=== PATIENT | male | born 1990 | race Caucasian/White ===

== ENCOUNTER 2017-04-08 04:07 | Emergency (ER) | payer OTHER ==
[~2017-04-08] VITALS: Ht 170.2 cm; Wt 61.2 kg
[~2017-04-08 04:07] MED LIST: VICODIN 5-3001 EACH PO
[2017-04-08] MEDS ORDERED: LISINOPRIL10 MG PO (04:13)
[2017-06-02] MEDS ORDERED: KEPPRA500 MG PO (08:51)
== END 2017-04-08 06:14 | disposition home or self-care (01) ==
LOC: ED 04:07
DX: S06.0X1A Concussion with loss of consciousness of 30 minutes or less, initial encounter (principal); R56.1 Post traumatic seizures; F17.200 Nicotine dependence, unspecified, uncomplicated; W06.XXXA Fall from bed, initial encounter; Z79.899 Other long term (current) drug therapy
CPT/HCPCS: 70450; 80053; 85025; 99284; J7030

== ENCOUNTER 2017-08-28 00:39 | Emergency (ER) | payer OTHER ==
[~2017-08-28] VITALS: Ht 170.2 cm; Wt 61.2 kg
--- OUTSIDE RECORDS SUMMARY | ~2017-08-28 | XMS | Encounter Summary ---
Demographics + + + | Address | [address] | | | [place] [address] | + + + | Home Phone | | + + + | Preferred Language | Unknown | + + + | Marital Status | Single | + + + | Rastafarian Affiliation | Unknown | + + + | Race | Unknown | + + + | Ethnic Group | Unknown | + + + Author + + + | Author | [facility] | | | and Michaelana | + + + | Organization | [facility] | | | and Michaelana | + + + | Address | Unknown | + + + | Phone | Unavailable | + + + Support + + + + + | Name | Relationship | Address | Phone | + + + + + | Nina Camejo | ECON | [address] | | | | | [place], [place] | | | | | [address] | | + + + + + Care Team Providers + +------+ + | Care Gettering Filament Machine Operator Name | Role | Phone | + +------+ + | Fernando Wilson MD | PCP | | + +------+ + Encounter Details +--------+ + + + + | Date | Type | Department | Care Team | Description | +--------+ + + + + | 08/26/ | Abstract | [facility] [place] | Henrique Yan, | | | 2017 | | NEUROLOGY [place] | MD [address] [facility] | | | | | [address] | [place] | | | | | [place] | [address] | | | | | [address] | | | | | | [phone] | | | +--------+ + + + + Social History + + + +--------+ + | Tobacco Use | Types | Packs/Day | Years | Date | | | | | Used | | + + + +--------+ + | Current Every Day | Cigarettes | 0.5 | 9 | Started: 08/26/2008 | | Smoker | | | | | + + + +--------+ + + +---+---+--------+ | Smokeless Tobacco: | | | Quit: | | Former User | | | 2010 | + +---+---+--------+ + + +---------+ + | Alcohol Use | Drinks/We | oz/Week | Comments | | | ek | | | + + +---------+ + | Yes | 6 Cans | 3.6 | Social | | | of beer | | | + + +---------+ + + + + | Sex Assigned at | Date Recorded | | | | + + + | Not on file | | + + + as of this encounter Plan of Treatment Not on fileas of this encounter Visit Diagnoses Not on filein this encounter"
--- OUTSIDE RECORDS SUMMARY | ~2017-08-28 | XMS | Encounter Summary ---
Demographics + + + | Address | [address] | | | [place] [address] | + + + | Home Phone | | + + + | Preferred Language | Unknown | + + + | Marital Status | Single | + + + | Zoroastrian Affiliation | Unknown | + + + | Race | Unknown | + + + | Ethnic Group | Unknown | + + + Author + + + | Author | [facility] | | | and Michaelana | + + + | Organization | [facility] | | | and Michaelana | + + + | Address | Unknown | + + + | Phone | Unavailable | + + + Support + + + + + | Name | Relationship | Address | Phone | + + + + + | Nina Camejo | ECON | [address] | | | | | [place], [place] | | | | | [address] | | + + + + + Care Team Providers + +------+ + | Care Keymodule Assembly Machine Tender Name | Role | Phone | + +------+ + | Fernando Wilson MD | PCP | | + +------+ + Reason for Referral Diagnostic/Screening (Routine) + +--------+ + + + + | Status | Reason | Specialty | Diagnoses / | Referred By | Referred To | | | | | Procedures | Contact | Contact | + +--------+ + + + + | Pending | | Radiology | Diagnoses | Yuriy, | | | Review | | | Seizures | Henrique S, | | | | | | ([facility]LY [facility]) | 19 | | | | | | Procedures | [facility] | | | | | | MRI Brain w | [place], | | | | | | wo Brainna | [place] [address] | | | | | | | Phone: | | | | | | | [phone] | | | | | | | Fax: | | | | | | | [phone] | | + +--------+ + + + + Reason for Visit + + + | Reason | Comments | + + + | Imaging Only | | + + + Encounter Details +--------+ + + + + | Date | Type | Department | Care Team | Description | +--------+ + + + + | 08/26/ | Telephone | [facility] | Henrique Yan, | Imaging Only | | 2018 | | [facility] [place] | [address] | | | | | [address] | [place] | | | | | [place] | [address] | | | | | [address] | | | | | | [phone] | | | +--------+ + + + [...] | | Former User | | | 2009 | + +---+---+--------+ + + +---------+ + [...] as of this encounter Plan of Treatment + +--------+ + + | Name | Priori | Associated Diagnoses | Order Schedule | | | ty | | | + +--------+ + + | MRI Brain w wo Contrast | Routin | Seizures (HCC) | Expected: | | | e | | 08/26/2017, Expires: | | | | | 08/26/2018 | + +--------+ + + as of this encounter Visit Diagnoses + + | Diagnosis | + + | Seizures (HCC) - Primary | + + | Other convulsions | + +"
--- OUTSIDE RECORDS SUMMARY | ~2017-08-28 | XMS | Clinical Summary ---
Demographics + + + | Address | [address] | | | [place] [address] | + + + | Home Phone | | + + + | Preferred Language | Unknown | + + + | Marital Status | Single | + + + | Yarsani Affiliation | Unknown | + + + | Race | Unknown | + + + | Ethnic Group | Unknown | + + + Author + + + | Author | [facility] | | | and Michaelana | + + + | Organization | [facility] | | | and Michaelana | + + + | Address | Unknown | + + + | Phone | Unavailable | + + + Support + + + + + | Name | Relationship | Address | Phone | + + + + + | Nina Camejo | ECON | [address] | | | | | [place] | | | | | [address] | | + + + + + Care Team Providers + +------+ + | Care Black Ash Worker Name | Role | Phone | + +------+ + | Fernando Wilson MD | PP | | + +------+ + Allergies No Known Allergies Current Medications + + +--------+---------+------+------+-------+ | Prescription | Sig. | Disp. | Refills | Star | End | Statu | | | | | | t | Date | s | | | | | | Date | | | + + +--------+---------+------+------+-------+ | lisinopril | Take 1 tablet by | | | 03/2 | | Activ | | (PRINIVIL, ZESTRIL) | mouth Daily. | | | 8/20 | | e | | 10 mg tablet | | | | 18 | | | + + +--------+---------+------+------+-------+ | ibuprofen (ADVIL, | Take 200 mg by mouth | | | | | Activ | | MOTRIN) 200 mg | every 6 hours as | | | | | e | | tablet | needed for Pain. | | | | | | + + +--------+---------+------+------+-------+ | Cholecalciferol | Take 50,000 Units by | | | | | Activ | | (VITAMIN D-3) 24950 | mouth Once a week. | | | | | e | | units CAPS | | | | | | | + + +--------+---------+------+------+-------+ | lamoTRIgine | Start 1 tab daily. | 147 | 0 | 04/0 | | Activ | | (LAMICTAL) 25 mg | Every week increase | tablet | | 620 | | e | | tabletIndications: | by 1 tab, | | | 18 | | | | Complex partial | alternating between | | | | | | | epilepsy with | morning and evening | | | | | | | generalization and | up to 3 tabs twice a | | | | | | | with intractable | day. Then switch to | | | | | | | epilepsy (HCC) | 100 mg tabs. | | | | | | + + +--------+---------+------+------+-------+ | lamoTRIgine | Take 1 tablet by | 60 | 2 | 04/0 | | Activ | | (LAMICTAL) 100 mg | mouth 2 times daily. | tablet | | 11/09 | | e | | tabletIndications: | Start after | | | 18 | | | | Complex partial | finishing 25mg tabs. | | | | | | | epilepsy with | | | | | | | | generalization and | | | | | | | | with intractable | | | | | | | | epilepsy (HCC) | | | | | | | + + +--------+---------+------+------+-------+ | levETIRAcetam | Take 500 mg by mouth | | | 03/0 | 04/0 | Disco | | (KEPPRA) 500 mg | 2 times daily. | | | 01/09 | 11/09 | ntinu | | tablet | 0700, 1900 | | | 18 | 18 | ed | + + +--------+---------+------+------+-------+ Active Problems Not on file Encounters +--------+ + + + + | Date | Type | Specialty | Care Team | Description | +--------+ + + + + | 08/26/ | Office | | Henrique Yan, | Complex partial | | 2017 | Visit | | MD | epilepsy with | | | | | | generalization and | | | | | | with intractable | | | | | | epilepsy (HCC) | | | | | | (Primary Dx); | | | | | | Anxiety and | | | | | | depression; | | | | | | Pathological | | | | | | fracture of vertebra | | | | | | due to other | | | | | | osteoporosis, | | | | | | sequela; | | | | | | Osteomalacia | +--------+ + + + + | 08/26/ | Telephone | | Henrique Yan, | | | 2017 | | | MD | | +--------+ + + + + | 08/26/ | Telephone | | Henrique Yan, | Imaging Only | | 2017 | | | MD | | +--------+ + + + + | 08/26/ | Abstract | | Henrique Yan, | | | 2017 | | | | | +--------+ + + + + | 06/24/ | Ancillary | | Provider, | | | 2017 | Orders | | MD Baldo | | +--------+ + + + + | 06/10/ | Ancillary | | April, | | | 2017 | Orders | | MD Baldo | | +--------+ + + + + | 06/02/ | Imaging | | Provider, | | | 2017 | Exam | | MD Baldo | | +--------+ + + + + from Last 3 Months Family History + + +------+ + | Medical History | Relation | Name | Comments | + + +------+ + | No Known Problems | Brother | | | + + +------+ + | No Known Problems | Father | | | + + +------+ + | No Known Problems | Maternal | | | | | Grandfath | | | | | er | | | + + +------+ + | No Known Problems | Maternal | | | | | Grandmoth | | | | | er | | | + + +------+ + | No Known Problems | Mother | | | + + +------+ + | Asthma | Other | | | + + +------+ + | No Known Problems | Paternal | | | | | Grandfath | | | | | er | | | + + +------+ + | No Known Problems | Paternal | | | | | Grandmoth | | | | | er | | | + + +------+ + | No Known Problems | Sister | | | + + +------+ + + +------+--------+ + | Relation | Name | Status | Comments | + +------+--------+ + | Brother | | Alive | | + +------+--------+ + | Father | | | | + +------+--------+ + | Maternal Grandfather | | | | + +------+--------+ + | Maternal Grandmother | | | | + +------+--------+ + | Mother | | Alive | | + +------+--------+ + | Other | | | | + +------+--------+ + | Paternal Grandfather | | | | + +------+--------+ + | Paternal Grandmother | | | | + +------+--------+ + | Sister | | Alive | | + +------+--------+ + Social History + + + +--------+ [...] on file | | + + + Last Filed Vital Signs + + + + | Vital Sign | Reading | Time Taken | + + + + | Blood Pressure | 128/80 | 08/26/20171120 PDT | + + + + | Pulse | 78 | 08/26/20171120 PDT | + + + + | Temperature | 37.2 C (98.9 F) | 08/26/20171120 PDT | + + + + | Respiratory Rate | - | - | + + + + | Oxygen Saturation | 97% | 08/26/20171120 PDT | + + + + | Inhaled Oxygen | - | - | | Concentration | | | + + + + | Weight | 65.5 kg (144 lb 6.4 | 08/26/20171120 PDT | | | oz) | | + + + + | Height | 167.6 cm (5' 6") | 08/26/20171120 PDT | + + + + | Body Mass Index | 23.31 | 08/26/20171120 PDT | + + + + Plan of Treatment + + + + + | Health Maintenance | Due Date | Last Done | Comments | + + + + + | Vaccine: | | | | | Dtap/Tdap/Td (1 - | 0 | | | | Tdap) | | | | + + + + + | Vaccine: | | | | | Pneumococcal 19-64 | 0 | | | | (PPSV23 only) Medium | | | | | Risk (1 of 1 - | | | | | PPSV23) | | | | + + + + + | Vaccine: Influenza | | | | | (Season Ended) | 8 | | | + + + + + Results CT Head wo Contrast (06/02/2017 0735) + + + | Specimen | Performing Laboratory | + + + | | [facility] | + + + + + | Narrative | + + | External films for comparison only - no result from [place]. | + + from Last 3 Months Insurance + +--------+ +--------+ +---------+ | Payer | Benefi | Subscriber | Type | Phone | Address | | | t Plan | ID | | | | | | / | | | | | | | Group | | | | | + +--------+ +--------+ +---------+ | [employer] | [employer] | [phone] | Medica | [phone] | | MEDICAID HMO | HEALTH | | id | 9821 | | | | [place] | | | | | | [place] | | | | | + +--------+ +--------+ +---------+ + +--------+ +--------+ + + | Guarantor Name | Accoun | Relation to | Date | Phone | Billing Address | | | t Type | Patient | of | | | | | | | | | | + +--------+ +--------+ + + | MACARIO PAPPAS | Person | Self [birth year] | Home: | [address] | | | al/Fam | | 1990 | [phone] [place] [address] | | | serafin | | | [birth year] | | + +--------+ +--------+ + +
--- OUTSIDE RECORDS SUMMARY | ~2017-08-28 | XMS | Encounter Summary ---
Demographics + + + | Address | [address] | | | [place] [address] | + + + | Home Phone | | + + + | Preferred Language | Unknown | + + + | Marital Status | Single | + + + | Confucianism Affiliation | Unknown | + + + | Race | Unknown | + + + | Ethnic Group | Unknown | + + + Author + + + | Author | [facility] | | | and Michaelana | + + + | Organization | [facility] | | | and Michaelana | + + + | Address | Unknown | + + + | Phone | Unavailable | + + + Support + + + + + | Name | Relationship | Address | Phone | + + + + + | Nina Camejo | ECON | [address] | | | | | [place] | | | | | [address] | | + + + + + Care Team Providers + +------+ + | Care Operations Management Professionals Name | Role | Phone | + +------+ + | Fernando Wilson MD PCP | | + +------+ + Reason for Visit + + + | Reason | Comments | + + + | Consultation | Evaluation of seizures. Has had March and May. | + + + Evaluate & Treat (Routine) +--------+--------+ + + + + | Status | Reason | Specialty | Diagnoses / | Referred By | Referred To | | | | | Procedures | Contact | Contact | +--------+--------+ + + + + | Closed | | Neurology | Diagnoses | Steve, | Yuriy, | | | | | Epilepsy, | Fernando Agustin, | Henrique Zuleta MD | | | | | unspecified, | [address] | [address] | | | | | not | [address] | [facility] | | | | | intractable, | [place], | [place], | | | | | without | [place] [address] | [place] [address] | | | | | status | Phone: | Phone: | | | | | epilepticus | [phone] | [phone] | | | | | ([facility]) | Fax: | Fax: | | | | | Procedures | [phone] | [phone] | | | | | MO OFFICE | | | | | | | OUTPATIENT | | | | | | | NEW 60 | | | | | | | MINUTES | | | +--------+--------+ + + + + Encounter Details +--------+---------+ + + + | Date | Type | Department | Care Team | Description | +--------+---------+ + + + | 08/26/ | Office | [facility] | Henrique Yan, | Complex partial | | 2017 | Visit | NEUROLOGY [place] | [address] [facility] | epilepsy with | | | | [address] | [place] | generalization and | | | | [place] | [address] | with intractable | | | | [address] | | epilepsy (HCC) | | | | [phone] | | (Primary Dx); | | | [...] | | | | | Osteomalacia | +--------+---------+ + + + Social History + + [...] + + + as of this encounter Last Filed Vital Signs + + + [...] | Body Mass Index | 23.31 | 08/26/2017 1121 PDT | + + + + in this encounter Instructions Patient Instructions - Henrique Yan MD - 08/26/2017 1100 PDTFormatting of this note michele galan be different from the original. Reduce Levetiracetam by 1/2 tab per week alternating between morning and evening until you are off. Increase Lamotrigine as instructed on the prescription up to 100mg 2 times a day. Get blood drawn for the Lamotrigine level 2 weeks after starting 100mg 2 times a day and se nd to Dr. Yan's office. Partial Seizures: Know What to Do Because seizures may happen at any time, it helps to be prepared. This is true even ifmed icine usually keeps your seizures under control. Start by telling those you live and work wi th about your health condition. Make sure they know what to do if a seizure happens. Steps for your protection Most partial seizures last from a few seconds to a few minutes. During that time, those kira und you should help keep you safe. What those witnessing the seizure should do is listed bel ow. What to do Seek medical attention right awayif you: Are hurt during the seizure. Begin choking. Have a seizure that lasts more than 5 minutes. Have multiple seizures in a row. Do not fully regain consciousness after the seizure is over. Otherwise, they should do the following: Move any hard or sharp objects away from you. Turn you on your side if you seem unconscious. Talk to you afterward to relieve your confusion. Note how long the seizure lasted. Note what you were doing before, during, and after the seizure. What NOT to do It is important thatthey do not do the following: Do not try to stop any jerking or twisting. Do not put anything in the mouth. Prepare family, friends, and coworkers It may seem awkward to talk to others about seizures. But telling family, friends, and cowo rkers about your seizures can help them react to a seizure in a way that will help and not hurt you. Describe to them what happens before, during, and after you have a seizure. Exp melody what they should and should not do. Date Last Reviewed: 02/26/201519990774-[address] [employer] [place] [address], [place] [address]. All righ ts reserved. This information is not intended as a substitute for professional medical care. Always follow your healthcare professional's instructions. Epilepsy: How Seizures Affect the Body The brain is the control center ofyour body. It manages everything from movement an d balance to emotions and memory. When a seizure happens, some or all brain functions are te mporarily affected. Normal EEG Partial seizure EEG Generalized seizure EEG The brain working normally The brain uses electrical signals to send messages throughout your body.Signals sent from different parts ofyour brain control different body functions. For instance, 1 part ofy our brain controls balance. Another part controls speech. A healthcare provider can record b rain signals using a test called an electroencephalogram (EEG). The brain during a seizure During a seizure, excessive electrical signals inyour brain disrupt its normal activity. The waythis affects body functions depends on2 main factors. First is the location of t he seizure in your brain. For instance, a seizure in a part ofyour brain that controls mov ement might causeyour arm or leg to jerk. The second factor is the type of seizure. For in stance, a seizurethat affects more ofyour brain may affect more ofyour body. Types of seizures The 2 main types of seizures are partial and generalized. A partial seizure can become gene ralized. Partial seizures (do not involve the whole brain) Also called focal seizures, these seizures start in 1 part ofyour brain.There are 2 typ es: Simple partial seizures.These may start with an aura, or warning. Auras are an unusual sense or feeling that indicates that a seizure will soon happen. Auras can involve strange tastes or smells, stomach upset, or a feeling of fear or dj vu. Simple partial seizures may also involve jerking movements or hallucinations. You are awake and aware that you are h aving a simple seizure. Complex partial seizures.These may also start with an aura. You may become motionless and have a vacant stare. Or you may perform automatisms. These are repeated movements, such as smacking lips or gesturing.A complex seizure means there is a change or loss of c onsciousness. If you have a complex seizure, youmay be awake but unaware of the seizure. Generalized seizures (involves the whole brain) These seizures affect your entire brain at once. They usually start happening at a young ag e. The most common types of generalized seizures are: Absence seizures(petit mal seizures). These seizures involve a brief lapse of awarenes s. Signs can include staring, eye blinking, and lip smacking. Tonic-clonic seizures(grand mal seizures). These may be the best known type of seizure . You lose consciousness and may fall to the ground.Your body stiffens and then convulses, withyour arms and legs jerking rhythmically. Myoclonic seizures.These seizures involve brief jerking movements. They usually affect both sides of your body. Atonic seizures(drop attacks). During these seizures, you lose all muscle control and may fall or slump over. Date Last Reviewed: 01/28/201519999682-09[address] [employer] [place] [address]. All [facility] ts reserved. This information is not intended as a substitute for professional medical care. Always follow your healthcare professional's instructions. Self-Care for Epilepsy You can do many things to help control your seizures. First, follow your treatment plan. If yourhealthcare providerhas prescribed medicines, be sure to take them as directed. Also , take the following steps. Track and avoid triggers Triggersare things that seem to provoke seizures. Keep track of your triggers and try to avoid them. Here are 2 common triggers and ways to cope with them: Too little sleep.Be sure to get enough sleep. If you have trouble sleeping, talk to yo healthcare provider. Alcohol and drugs.Avoid alcohol. Never take any illegal drugs. If you do have substanc e abuse issues, seek the help of your healthcare provider for the safest way to become free of alcohol and drugs. Keep a healthy lifestyle A healthy lifestyle can help you feel goodand cope better with epilepsy. Exercise often. Frequent exercise can help keep you healthy. Try to exercise fix01kg nutes most days of the week. Yoga is a good choice. Eat well and regularly. Good nutrition can give you energy and make you feel better. Eat lotsof fruits, vegetables, and whole grains. Avoid skipping meals, because seizures are m ore likely if you have low blood sugar. Control stress. Keeping stress levels low can help you cope better with epilepsy. To man age stress, try an exercise program. Manage illness. Get proper treatment when you re sick. [facility] about the risk of seizures with medicines you take for illnesses. If y our healthcare provider has prescribed antiepileptic medicines, be sure to take them even wh en you re ill. Date Last Reviewed: 01/28/201519998142-[address] [employer] [place], [place] [address]. All righ ts reserved. This information is not intended as a substitute for professional medical care. Always follow your healthcare professional's instructions. 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
--- OUTSIDE RECORDS SUMMARY | ~2017-08-28 | XMS | Encounter Summary ---
Demographics + + + | Address | [address] | | | [place] [address] | + + + | Home Phone | | + + + | Preferred Language | Unknown | + + + | Marital Status | Single | + + + | Advent Affiliation | Unknown | + + + | Race | Unknown | + + + | Ethnic Group | Unknown | + + + Author + + + | Author | [facility] | | | and Michaelana | + + + | Organization | [facility] | | | and Michaelana [...] [place], [place] | | | | | [address] | | + + + + + Care Team Providers + +------+ + | Care Digital Photo Printer Name | Role | Phone | + +------+ + | Fernando Wilson MD | PCP | | + +------+ + Encounter Details +--------+ + + + + | Date | Type | Department | Care Team | Description | +--------+ + + + + | 08/26/ | Telephone | [place] | Henrique Yan, | | | 2017 | | NEUROLOGY [place] | [address] [facility] | | | | | [address] [facility] [address] | [place] | | | | | [place] | [address] | | | | | [address] | | | | | | [phone] | | | +--------+ + + + [...]
--- OUTSIDE RECORDS SUMMARY | ~2017-08-28 | XMS | Encounter Summary ---
Demographics + + + | Address | [address] | | | [place] [address] | + + + | Home Phone | | + + + | Preferred Language | Unknown | + + + | Marital Status | Single | + + + | Scientology Affiliation | Unknown | + + + | Race | Unknown | + + + | Ethnic Group | Unknown | + + + Author + + + | Author | [facility] | | | and Michaelana | + + + | Organization | [facility] | | | and Michaelana | + + + | Address | Unknown | + + + | Phone | Unavailable | + + + Support + + + + + | Name | Relationship | Address | Phone | + + + + + | Nina Camejo | ECON | [address] | | | | | [place], [place] | | | | | [address] | | + + + + + Care Team Providers + +------+ + | Care Operational Meteorologist Name | Role | Phone | + +------+ + PCP | Unavailable | + +------+ + Reason for Referral Diagnostic/Screening (Routine) + +--------+ + + + + | Status | Reason | Specialty | Diagnoses / | Referred By | Referred To | | | | | Procedures | Contact | Contact | + +--------+ + + + + | Pending | | Radiology | Procedures | Provider, | | | Review | | | CT Head wo | Historical, | | | | | | Contrast | [address] | | | | | | | Elis [address]. [place] | | | | | | | [place] | | | | | | | [address] | | + +--------+ + + + + Encounter Details +--------+ + + + + | Date | Type | Department | Care Team | Description | +--------+ + + + + | 06/02/ | Imaging | [facility] | Provider, | | | 2018 | Exam | MED CTR EXTERNAL | [address] | | | | | IMAGING | [place] | | | | | [phone] | [place] [address] | | +--------+ + + + + Social History + +-------+ +--------+------+ | Tobacco Use | Types | Packs/Day | Years | Date | | | | | Used | | + +-------+ +--------+------+ | Never Assessed | | | | | + +-------+ +--------+------+ + + + | Sex Assigned at | Date Recorded | | | | + + + | Not on file | | + + + as of this encounter Plan of Treatment Not on fileas of this encounter Results CT Head wo Contrast (06/02/2017 0735) + + + | Specimen | Performing Laboratory | + + + | | [facility] | + + + + + | Narrative | + + | External films for comparison only - no result from [facility]. | + + in this encounter Visit Diagnoses Not on filein this encounter"
--- OUTSIDE RECORDS SUMMARY | ~2017-08-28 | XMS | Encounter Summary ---
Demographics + + + | Address | [address] | | | [place] [address] | + + + | Home Phone | | + + + | Preferred Language | Unknown | + + + | Marital Status | Single | + + + | Temple Affiliation | Unknown | + + + | Race | Unknown | + + + | Ethnic Group | Unknown | + + + Author + + + | Author | [facility] | | | and Michaelana | + + + | Organization | [facility] | | | and Michaelana | + + + | Address | Unknown | + + + | Phone | Unavailable | + + + Support + + + + + | Name | Relationship | Address | Phone | + + + + + | Nina Camejo | ECON | [address] | | | | | [place], [place] | | | | | [address] | | + + + + + Care Team Providers + +------+ + | Care Cloth Burler Name | Role | Phone | + [...] | | | Review | | | MRI Lumbar | Historical, | | | | | | Spine wo | [address] | | | | | | Contrast | [address] | | | | | | | [place] | | | | | | | [address] | | + +--------+ + + + + Diagnostic/Screening (Routine) + +--------+ + + + + | Status | Reason | Specialty | Diagnoses / | Referred By | Referred To | | | | | Procedures | Contact | Contact | + +--------+ + + + + | Pending | | Radiology | Procedures | Provider, | | | Review | | | MRI | Historical, | | | | | | Thoracic | MD [address] | | | | | | Spine w wo | Elis [address]JO | | | | | | Contrast | [place] | | | | | | | [address] | | + +--------+ + + + + Diagnostic/Screening (Routine) + +--------+ + + + + | Status | Reason | Specialty | Diagnoses / | Referred By | Referred To | | | | | Procedures | Contact | Contact | + +--------+ + + + + | Pending | | Radiology | Procedures | Provider, | | | Review | | | MRI | Historical, | | | | | | Cervical | MD [address] | | | | | | Spine wo | Elis Escobedo. [address] A | | | | | | Contrast | [place] | | | | | | | [address] | | + +--------+ + + + + Encounter Details +--------+ + + + + | Date | Type | Department | Care Team | Description | +--------+ + + + + | 06/10/ | Ancillary | [facility] | Provider, | | | 2018 | Orders | MED CTR EXTERNAL | [address] | | | | | IMAGING | [place] | | | | | [phone] | [place] [address] | | +--------+ + + + + [...] Not on fileas of this encounter Results XR Thoracic Spine 2 Vw (04/21/2017 1040) + + + | Specimen | Performing Laboratory | + + + | | [facility] | + + + + + | Narrative | + + | External films for comparison only - no result from [facility]. | + + MRI Thoracic Spine w wo Contrast (06/24/2015 1310) + + + | Specimen | Performing Laboratory | + + + | | [facility] | + + + + + | Narrative | + + | External films for comparison only - no result from [facility]. | + + MRI Lumbar Spine wo Contrast (06/24/2015 0740) + + + | Specimen | Performing Laboratory | + + + | | [facility] | + + + + + | Narrative | + + | External films for comparison only - no result from [facility]. | + + MRI Cervical Spine wo Contrast (06/24/2015714) + + + | Specimen | Performing Laboratory | + + + | | [facility] | + + + + + | Narrative | + + | External films for comparison only - no result from [facility]. | + + in this encounter Visit Diagnoses Not on filein this encounter"
--- OUTSIDE RECORDS SUMMARY | ~2017-08-28 | XMS | Clinical Summary ---
Demographics + + + | Address | [address] | | | [place] [address] | + + + | Home Phone | | + + + | Preferred Language | Unknown | + + + | Marital Status | Single | + + + | Uatsdin Affiliation | Unknown | + + + | Race | White | + + + | Ethnic Group | Not or | + + + Author + + + | Author | [facility] | + + + | Organization | [facility] | + + + | Address | Unknown | + + + | Phone | Unavailable | + + + Support + + + + + | Name | Relationship | Address | Phone | + + + + + | FLORI PEARSON | ECON | [address] | | | | | [place] | | | | | [address] | | + + + + + Care Team Providers + +------+ + | Care Director Of Accounting Name | Role | Phone | + +------+ + | Fernando Wilson MD | PP | | + +------+ + Source Comments MARILEE is fully live on both [facility] Ambulatory and [facility] InPatient.[facility] Allergies Not on File Current Medications Not on file Active Problems Not on file Encounters +--------+ + + + + | Date | Type | Specialty | Care Team | Description | +--------+ + + + + | 07/27/ | Document-Sc | | Unknown | | | 2018 | anned | | | | +--------+ + + + + | 07/14/ | Results/Int | | Bianka Rivas MD | | | 2018 | erpretation | | | | +--------+ + + + + from Last 3 Months Social History + +-------+ +--------+------+ | Tobacco [...] on file | | + + + Plan of Treatment + + + + + | Health Maintenance | Due Date | Last Done | Comments | + + + + + | INFLUENZA VACCINE | | | | | (FLU SHOT) | 8 | | | + + + + + Procedures + +--------+ + + + | Procedure Name | Priori | Date/Time | Associated Diagnosis | Comments | | | ty | | | | + +--------+ + + + | EEG ROUTINE | Routin | 07/14/2017 | | Results for this | | | e | 12:00 AM | | procedure are in the | | | | PST | | results section. | + +--------+ + + + from Last 3 Months Results EEG ROUTINE (07/14/2017) + + | Narrative | + + | Patient Name: Macario Pappas Date of : 1990 Medical Record | | Number: [id number] Date of Test: 07/14/2017 Place of Service: [facility] | | ([address]) [facility] Department: [facility] - [id number] [facility] | | ROUTINE EEG History: 27 year old man with history of 2 seizures being treated with | | Keppra. Medications: Keppra, Lisinopril Interpretation: In the maximally alert | | state, there is a reactive 10-11 Hz posterior dominant rhythm of moderate amplitude, | | with lower amplitude faster frequencies present symmetrically in the anterior head | | regions. The patient entered into the drowsy state, but no segment of stage I or | | stage II of sleep was recorded. Nearly continuous subtle focal slowing in the theta | | frequency range was present in the right frontotemporal region. The assessment is made | | somewhat more difficult by the presence of frequent electrode artifact in the right | | posterior temporal (T6) electrode; however, the frontotemporal slowing has a believable | | field and does not appear clearly artifactual No epileptiform discharges or | | electrographic seizures were present. Hyperventilation was performed for 3 minutes | | with no additional abnormal responses. Photic stimulation produced no photoparoxysmal | | discharges or other abnormal response. EKG showed normal sinus rhythm throughout | | the recording. Impression: This is an abnormal EEG. The presence of focal slowing | | in the right frontotemporal region correlates with a possible physiologic or structural | | abnormality in that region. If not already performed, brain imaging with MRI would be | | indicated. No epileptiform abnormalities or electrographic seizures were recorded on | | this routine EEG. Electronically signed on 07/14/2017 at 11:29 AM BIANKA RIVAS MD. 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
--- OUTSIDE RECORDS SUMMARY | ~2017-08-28 | XMS | Clinical Summary ---
Demographics + + + | Address | [address] | | | [place] [address] | + + + | Home Phone | | + + + | Preferred Language | Unknown | + + + | Marital Status | Unknown | + + + | Anabaptism Affiliation | Unknown | + + + | Race | Unknown | + + + | Ethnic Group | Unknown | + + + Author + + + | Author | [facility] | + + + | Organization | [facility] [employer] [facility] | + + + | Address | Unknown | + + + | Phone | Unavailable | + + + Care Team Providers + +------+ + | Care Technical Developer Name | Role | Phone | + +------+ + PP | Unavailable | + +------+ + Allergies Not on File Current Medications Not on file Active Problems Not on file Social History + +-------+ +--------+------+ | Tobacco [...] | + + + + + Results Not on filefrom Last 3 Months"
--- OUTSIDE RECORDS SUMMARY | ~2017-08-28 | XMS | Encounter Summary ---
Demographics + + + | Address | [address] | | | [place] [address] | + + + | Home Phone | | + + + | Preferred Language | Unknown | + + + | Marital Status | Single | + + + | Baptism Affiliation | Unknown | + + + | Race | Unknown | + + + | Ethnic Group | Unknown | + + + Author + + + | Author | [facility] | | | and Michaelana | + + + | Organization | [facility] | | | and Michaelana | [...] [place], [place] | | | | | [address] | | + + + + + Care Team Providers + +------+ + | Care Agricultural Real Estate Agent Name | Role | Phone | + [...] | | | | | | [place] | | | | | | | [address] | | + +--------+ + + + [...] | | | | | | | [address] | | + +--------+ + + + [...] | | | | | | | [address] | | + +--------+ + + + [...] Elis [address]ARANJO | | | | | [phone] | [place] [address] | | +--------+ + + + + [...] for comparison only - no result from [facility]. | + + MRI Thoracic Spine w wo Contrast (06/24/2015 1310) + + + | Specimen | Performing Laboratory | + + + | | [facility] | + + + + + | Narrative | + + | External films for comparison only - no result from [facility]. | + + MRI Lumbar Spine wo Contrast (06/24/2015 0740) + + + | Specimen | Performing Laboratory | + + + | | [facility] | + + + + + | Narrative | + + | External films for comparison only - no result from [facility]. | + + MRI Cervical Spine wo Contrast (06/24/2015714) + + + | Specimen | Performing Laboratory | + + + | | [facility] | + + + + + | Narrative | + + | External films for comparison only - no result from [facility]. | + + in this encounter Visit Diagnoses Not on filein this encounter"
--- OUTSIDE RECORDS SUMMARY | ~2017-08-28 | XMS | Encounter Summary ---
Demographics + + + | Address | [address] | | | [place] [address] | + + + | Home Phone | | + + + | Preferred Language | Unknown | + + + | Marital Status | Single | + + + | Episcopal Affiliation | Unknown | + + + | Race | Unknown | + + + | Ethnic Group | Unknown | + + + Author + + + | Author | [facility] | | | and Michaelana | + + + | Organization | [facility] | | | and Michaelana [...] [place], [place] | | | | | [address] | | + + + + + Care Team Providers + +------+ + | Care Accuracy Expert Name | Role | Phone | + [...] S, | | | | | | ([facility]) | 19 | | | | | | Procedures | [facility] | | | | | | MRI Brain w | [place], | | | | | | wo Brianna | [place] [address] | | | | | | | Phone: | | | | | | | [phone] | | | | | | | Fax: | | | | | | | [phone] | | + +--------+ + + + [...] | | | | [place] | [address] | | | | | [address] | | | | | | [phone] | | | +--------+ + + + [...]
--- OUTSIDE RECORDS SUMMARY | ~2017-08-28 | XMS | Encounter Summary ---
Demographics + + + | Address | [address] | | | [place] [address] | + + + | Home Phone | | + + + | Preferred Language | Unknown | + + + | Marital Status | Single | + + + | Yazidism Affiliation | Unknown | + + + | Race | White | + + + | Ethnic Group | Not or | + + + Author + + + | Author | [facility] | + + + | Organization | [facility] | + + + | Address | Unknown | + + + | Phone | Unavailable | + + + Support + + + + + | Name | Relationship | Address | Phone | + + + + + | FLORI PEARSON | ECON | [address] | | | | | [place] | | | | | [address] | | + + + + + Care Team Providers + +------+ + | Care Interior Design Program Chair Name | Role | Phone | + +------+ + | Fernando Wilson MD | PCP | | + +------+ + Encounter Details +--------+ + + + + | Date | Type | Department | Care Team | Description | +--------+ + + + + | 07/27/ | Document-Sc | Health Information | Unknown . | | | 2018 | anned | Services [address] | | | | | | [address] | | | | | | Road Mailcode: | | | | | | [address] [place] [address] | | | | | | [facility] | | | | | | [place], [place] | | | | | | [address] | | | | | | [phone] | | | +--------+ + + + [...]
--- OUTSIDE RECORDS SUMMARY | ~2017-08-28 | XMS | Encounter Summary ---
Demographics + + + | Address | [address] | | | [place] [address] | + + + | Home Phone | | + + + | Preferred Language | Unknown | + + + | Marital Status | Single | + + + | Latter-Day Affiliation | Unknown | + + + | Race | Unknown | + + + | Ethnic Group | Unknown | + + + Author + + + | Author | [facility] | | | and Michaelana | + + + | Organization | [facility] | | | and Michaelana [...] [place], [place] | | | | | [address] | | + + + + + Care Team Providers + +------+ + | Care Marine Engineering Consultant Name | Role | Phone | + [...] | | NEUROLOGY BETTINA | MD [address] [facility] | | | | | [address] | [place] | | | | | [place] | [address] | | | | | [address] | | | | | | [phone] | | | +--------+ + + + [...]
--- OUTSIDE RECORDS SUMMARY | ~2017-08-28 | XMS | Encounter Summary ---
Demographics + + + | Address | [address] | | | [place] [address] | + + + | Home Phone | | + + + | Preferred Language | Unknown | + + + | Marital Status | Single | + + + | Adventist Affiliation | Unknown | + + + | Race | White | + + + | Ethnic Group | Not or | + + + Author + + + | Author | [facility] | + + + | Organization | [facility] | + + + | Address | Unknown | + + + | Phone | Unavailable | + + + Support + + + + + | Name | Relationship | Address | Phone | + + + + + | FLORI PEARSON | ECON | [address] | | | | | [place] | | | | | [address] | | + + + + + Care Team Providers + +------+ + | Care Administrative Accountant Name | Role | Phone | + +------+ + PCP | Unavailable | + +------+ + Encounter Details +--------+ + + + + | Date | Type | Department | Care Team | Description | +--------+ + + + + | 07/14/ | Results/Int | Neurology | Bianka Rivas MD | | | 2018 | erpretation | Telemedicine 3181 | [address] | | | | | [facility] [facility] | [place], [place] | | | | | [place], [place] | [address] | | | | | [address] | [phone] | | | | | | | | +--------+ + [...] Treatment Not on fileas of this encounter Procedures + +--------+ + + + | [...] section. 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
--- OUTSIDE RECORDS SUMMARY | ~2017-08-28 | XMS | Encounter Summary ---
Demographics + + + | Address | [address] | | | [place] [address] | + + + | Home Phone | | + + + | Preferred Language | Unknown | + + + | Marital Status | Single | + + + | Catholic Affiliation | Unknown | + + + | Race | Unknown | + + + | Ethnic Group | Unknown | + + + Author + + + | Author | [facility] | | | and Michaelana | + + + | Organization | [facility] | | | and Michaelana [...] [place], [place] | | | | | [address] | | + + + + + Care Team Providers + +------+ + | Care Brush Painter Name | Role | Phone | + [...] | | | | | Contrast | MD [address] | | | | | | | [address] | | | | | | | [place] | | | | | | | [address] | | + +--------+ + + + [...] | | | | | Contrast | MD [address] | | | | | | | Elis [address]edo. [address] [address] | | | | | | | [place] | | | | | | | [address] | | + +--------+ + + + + Encounter Details +--------+ + + + + | Date | Type | Department | Care Team | Description | +--------+ + + + + | 06/24/ | Ancillary | [facility] | Provider, | | | 2018 | Orders | MED CTR EXTERNAL | [address] | | | | | IMAGING | Elis Escobedo. [place] | | | | | [phone] | [place] [address] | | +--------+ + + + + [...] no result from [facility]. | + + CT Head wo Contrast (04/08/2017 0505) + + + | Specimen | Performing Laboratory | + + + | | [facility] | + + + + + | Narrative | + + | External films for comparison only - no result from [facility]. | + + in this encounter Visit Diagnoses Not on filein this encounter"
--- OUTSIDE RECORDS SUMMARY | ~2017-08-28 | XMS | Clinical Summary ---
Demographics + + + | Address | [address] | | | [place] [address] | + + + | Home Phone | | + + + | Preferred Language | Unknown | + + + | Marital Status | Unknown | + + + | Holiness Affiliation | Unknown | + + + | Race | Unknown | + + + | Ethnic Group | Unknown | + + + Author + + + | Author | [facility] | + + + | Organization | [facility] [employer] [facility] | + + + | Address | Unknown | + + + | Phone | Unavailable | + + + Care Team Providers + +------+ + | Care Food Processing Chemist Name | Role | Phone | + [...]
--- OUTSIDE RECORDS SUMMARY | ~2017-08-28 | XMS | Encounter Summary ---
Demographics + + + | Address | [address] | | | [place] [address] | + + + | Home Phone | | + + + | Preferred Language | Unknown | + + + | Marital Status | Single | + + + | Catholic Affiliation | Unknown | + + + | Race | Unknown | + + + | Ethnic Group | Unknown | + + + Author + + + | Author | [facility] | | | and Michaelana | + + + | Organization | [facility] | | | and Michaelana [...] [place] | | | | | [address] | | + + + + + Care Team Providers + +------+ + | Care Fall Intern Name | Role | Phone | + [...] | | not | NADIA CHATTERJEE | [facility] | | | | | intractable, | [place], | [place], | | | | | without | [place] [address] | [place] [address] | | | | | status | Phone: | Phone: | | | | | epilepticus | [phone] | [phone] | | | | | ([facility]) | Fax: | Fax: | | | | | Procedures | [phone] | [phone] | | | | | CT OFFICE | | | | | | | OUTPATIENT | | | | | | | NEW 60 | | | | | | | MINUTES | | | +--------+--------+ + + + + Encounter Details +--------+---------+ + + + | Date | Type | Department | Care Team | Description | +--------+---------+ + + + | 08/26/ | Office | [facility] | Henrique Yan, | Complex partial | | 2017 | Visit | NEUROLOGY [place] | [address] [facility] | epilepsy with | | | | [address] | [place] | generalization and | | | | [place] | [address] | with intractable | | | | [address] | | epilepsy (HCC) | | | | [phone] | | (Primary Dx); | | | [...] and should not do. Date Last Reviewed: 02/26/201519999047-9463 [email or web address]. [address] [place] [address], [place] [address]. All righ ts reserved. This information is [...] fall or slump over. Date Last Reviewed: 01/28/201519996786-8244 [employer]. [address] [place] [address]. All [facility] ts reserved. This information is not [...] help keep you healthy. Try to exercise nvq55an nutes most days of the week. Yoga [...] treatment when you re sick. [facility] pharmacist about the risk of seizures with medicines you take for illnesses. If y our healthcare provider has prescribed antiepileptic medicines, be sure to take them even wh en you re ill. Date Last Reviewed: 01/28/201519991816-0814 [email or web address]. [address] [place], [place] [address]. All righ ts reserved. This information is [...]
--- OUTSIDE RECORDS SUMMARY | ~2017-08-28 | XMS | Clinical Summary ---
Demographics + + + | Address | [address] | | | [place] [address] | + + + | Home Phone | | + + + | Preferred Language | Unknown | + + + | Marital Status | Single | + + + | Anabaptist Affiliation | Unknown | + + + [...] [place] | | | | | [address] | | + + + + + Care Team Providers + +------+ + | Care Pipe Organ Builder Name | Role | Phone | + +------+ + | Fernando Wilson MD | PP | | + +------+ + Source Comments MARILEE is fully live on both [facility] Ambulatory and [facility] InPatient.[facility] Allergies Not on File Current Medications Not [...] : 1990 Medical Record | | Number: [id number] Date of Test: 07/14/2017 Place of Service: [facility] | | ([address]) [facility] Department: [facility] - [id number] [facility] | | ROUTINE EEG History: 27 year [...] signed on 07/14/2017 at 11:29 AM BIANKA IRVAS MD. 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
--- OUTSIDE RECORDS SUMMARY | ~2017-08-28 | XMS | Clinical Summary ---
Demographics + + + | Address | [address] | | | [place] [address] | + + + | Home Phone | | + + + | Preferred Language | Unknown | + + + | Marital Status | Single | + + + | Restorationist Affiliation | Unknown | + + + | Race | Unknown | + + + | Ethnic Group | Unknown | + + + Author + + + | Author | [facility] | | | and Michaelana | + + + | Organization | [facility] | | | and [...] [place] | | | | | [address] | | + + + + + Care Team Providers + +------+ + | Care Miner Operator Name | Role | Phone | [...] | | Activ | | (VITAMIN D-3) [id number] | mouth Once a week. | | [...] | 2017 | Exam | | MD Blado | | +--------+ + + + + [...] for comparison only - no result from [facility]. | + + from Last 3 Months [...] | | al/Fam | | 1990 | [phone] | [place] [address] | | | serafin | | | [birth year] | | + +--------+ +--------+ + +
--- OUTSIDE RECORDS SUMMARY | ~2017-08-28 | XMS | Encounter Summary ---
Demographics + + + | Address | [address] | | | [place] [address] | + + + | Home Phone | | + + + | Preferred Language | Unknown | + + + | Marital Status | Single | + + + | Hindu Affiliation | Unknown | + + + | Race | White | + + + | Ethnic Group | Not or | + + + Author + + + | Author | [facility] | + + + | Organization | [facility] | + + + | Address | Unknown | + + + | Phone | Unavailable | + + + Support + + + + + | Name | Relationship | Address | Phone | + + + + + | FLORI PEARSON | ECON | [address] | | | | | [place] | | | | | [address] | | + + + + + Care Team Providers + +------+ + | Care Fund Accountant Name | Role | Phone | [...] | | | | | JOSE A [facility] | [place], [place] | | | | | [place], [place] | [address] | | | | | [address] | [phone] | | | | | | | [...] : 1990 Medical Record | | Number: [id number] Date of Test: 07/14/2017 Place of Service: [facility] | | ([id number]) [facility] Department: [facility] - [id number] [facility] | | ROUTINE EEG History: 27 [...] Suggested Modifier: GT - Telemedicine Suggested CPT: 98054 - EEG Routine Awake | | Only Suggested Dx: 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
--- OUTSIDE RECORDS SUMMARY | ~2017-08-28 | XMS | Encounter Summary ---
Demographics + + + | Address | [address] | | | [place] [address] | + + + | Home Phone | | + + + | Preferred Language | Unknown | + + + | Marital Status | Single | + + + | Pentecostal Affiliation | Unknown | + + + | Race | Unknown | + + + | Ethnic Group | Unknown | + + + Author + + + | Author | [facility] | | | and Michaelana | + + + | Organization | [facility] | | | and Michaelana [...] [place], [place] | | | | | [address] | | + + + + + Care Team Providers + +------+ + | Care Custodial Officer Name | Role | Phone | + [...] | | | | | | | [address] | | + +--------+ + + + [...] Elis NARANJO | | | | | [phone] | [place] [address] | | +--------+ + + + + [...]
--- OUTSIDE RECORDS SUMMARY | ~2017-08-28 | XMS | Encounter Summary ---
Demographics + + + | Address | [address] | | | [place] [address] | + + + | Home Phone | | + + + | Preferred Language | Unknown | + + + | Marital Status | Single | + + + | Judaism Affiliation | Unknown | + + + | Race | Unknown | + + + | Ethnic Group | Unknown | + + + Author + + + | Author | [facility] | | | and Michaelana | + + + | Organization | [facility] | | | and [place] | + + + | Address | Unknown | + + + | Phone | Unavailable | + + + Support + + + + + | Name | Relationship | Address | Phone | + + + + + | Nina Camejo | ECON | [address] | | | | | [place], [place] | | | | | [address] | | + + + + + Care Team Providers + +------+ + | Care Bar Helper Name | Role | Phone | + [...] 2017 | | NEUROLOGY BETTINA | [address] | | | | | [address] | [place] | | | | | [place] | [address] | | | | | [address] | | | | | | [phone] | | | +--------+ + + + [...]
--- OUTSIDE RECORDS SUMMARY | ~2017-08-28 | XMS | Encounter Summary ---
Demographics + + + | Address | [address] | | | [place] [address] | + + + | Home Phone [...] Author + + + | Author | [facility] | + + + | Organization | [facility] | + + + | Address | Unknown | + + + | Phone | Unavailable | + + + Support + + + + + | Name | Relationship | Address | Phone | + + + + + | FLORI PEARSON | ECON | [address] | | | | | [place] | | | | | [address] | | + + + + + Care Team Providers + +------+ + | Care Medicine Teacher Name | Role | Phone | + +------+ + | Fernando Wilson MD | PCP | | + +------+ + Encounter Details +--------+ + + + + | Date | Type | Department | Care Team | Description | +--------+ + + + + | 07/27/ | Document-Sc | Health Information | Unknown . | | | 2018 | anned | Services [address] | | | | | | [address] | | | | | | Road Mailcode: | | | | | | [address] [place] [address] | | | | | | [facility] | | | | | | [place], [place] | | | | | | [address] | | | | | | [phone] | | | +--------+ + + + [...]
--- OUTSIDE RECORDS SUMMARY | ~2017-08-28 | XMS | Encounter Summary ---
Demographics + + + | Address | [address] | | | [place] [address] | + + + | Home Phone [...] + + + | Author | [facility] | | | and Michealana | + + + | Organization | [facility] | | | and Michaelana [...] [place], [place] | | | | | [address] | | + + + + + Care Team Providers + +------+ + | Care Circuit Breaker Assembler Name | Role | Phone | + [...] | | | | | | | [address] | | + +--------+ + + + [...] | | | | | | | [address] | | + +--------+ + + + [...] JOSE A | | | | | [phone] | [place] [address] | | +--------+ + + + + [...]
[~2017-08-28 00:39] MED LIST changes: +KEPPRA500 MG PO; +LISINOPRIL10 MG PO
== END 2017-08-28 03:27 | disposition home or self-care (01) ==
LOC: ED 00:39
DX: F10.129 Alcohol abuse with intoxication, unspecified (principal); F17.200 Nicotine dependence, unspecified, uncomplicated; Z79.899 Other long term (current) drug therapy; Y90.8 Blood alcohol level of 240 mg/100 ml or more
CPT/HCPCS: 80053; 81001; 85025; 99283; G0480; J7030

== ENCOUNTER 2023-01-06 20:53 | Emergency (ER) | payer OTHER ==
[~2023-01-06] VITALS: Ht 165.1 cm; Wt 65.8 kg
[2023-01-06 22:14] LABS: ALBUMIN 3.2 g/dL (3.4-5.0); ALBUMIN/GLOBULIN RATIO 0.76 (1.1-2.4); ANION GAP 8.8 (7-21); BILIRUBIN, TOTAL 0.7 ng/dL (0.2-1.0); BUN/CREATININE RATIO 12.67 (6.0-28.6); CALCIUM 9.3 mg/dL (8.5-10.1); CREATININE, SERUM 0.71 mg/dL (0.70-1.30); POTASSIUM 3.8 mmol/L (3.5-5.1); PROTEIN, TOTAL 7.4 g/dL (6.4-8.2)
[2023-01-06 22:22] LABS: BASOPHILS 0.3 % (0-2); EOSINOPHILS 1.2 % (0-6); HEMATOCRIT 35.6 % (35.0-50.0); HEMOGLOBIN 11.6 g/dL (12.0-18.0); LYMPHOCYTES 17.5 % (24-44); MCH 27.8 (27-36); MCHC 32.7 g/dl (30-36); MONOCYTES 8.2 % (0-12); NEUTROPHILS 72.8 % (39-80); PLATELET COUNT 283 K/uL (140-440); RBC 4.18 M/ul (4.3-5.7); RDW 13.1 (10.5-15.0)
[2023-01-06] MEDS ORDERED: BACTRIM DS TAB1 EACH PO (22:58)
[2023-01-06] MEDS ORDERED: AMOX TR-K CLV1 EAC1 PO (22:58)
[2023-01-06 23:25] VITALS: BP 126/80
== END 2023-01-06 23:26 | disposition home or self-care (01) ==
LOC: ED 20:53
PROVIDERS: Internal Medicine
DX: L02.511 Cutaneous abscess of right hand (principal); F17.200 Nicotine dependence, unspecified, uncomplicated
CPT/HCPCS: 36415; 73140; 80053; 84550; 85025; 99283-25; A9270

== ENCOUNTER 2024-04-11 20:06 | Emergency (ER) | payer OTHER ==
[~2024-04-11] VITALS: Ht 165.1 cm; Wt 67.0 kg
[~2024-04-11 20:06] MED LIST changes: +AMOX TR-K CLV1 EAC1 PO; +BACTRIM DS TAB1 EACH PO
[2024-04-11 20:23] LABS: BASOPHILS 0.7 % (0-2); EOSINOPHILS 2.5 % (0-6); HEMATOCRIT 36.5 % (35.0-50.0); HEMOGLOBIN 12.1 g/dL (12.0-18.0); LYMPHOCYTES 36.5 % (24-44); MCH 27.5 (27-36); MCHC 33.2 g/dl (30-36); MCV 82.8 fl (81-99); NEUTROPHILS 54.3 % (39-80); PLATELET COUNT 360 K/uL (140-440); RBC 4.41 M/ul (4.3-5.7)
[2024-04-11 20:40] LABS: ALBUMIN/GLOBULIN RATIO 0.81 (1.1-2.4); ANION GAP 10.8 (7-21); BILIRUBIN, TOTAL 0.2 ng/dL (0.2-1.0); BUN/CREATININE RATIO 14.63 (6.0-28.6); CALCIUM 8.7 mg/dL (8.5-10.1); CREATININE, SERUM 0.82 mg/dL (0.70-1.30); POTASSIUM 3.8 mmol/L (3.5-5.1); PROTEIN, TOTAL 6.7 g/dL (6.4-8.2)
[2024-04-11] MEDS ORDERED: NALOXONE 4 MG NASAL SPRAY #2 HOME.PACK NAS ONE (22:00)
[2024-04-11] MEDS ORDERED: DOXYCYCLINE HYCLATE 100 MG HOME.PACK PO ONE (22:00)
[2024-04-11 22:20] VITALS: BP 109/73
== END 2024-04-11 22:20 | disposition home or self-care (01) ==
LOC: ED 20:06
PROVIDERS: Family Medicine
DX: T50.901A Poisoning by unspecified drugs, medicaments and biological substances, accidental (unintentional), initial encounter (principal); R40.4 Transient alteration of awareness; L03.113 Cellulitis of right upper limb; F17.200 Nicotine dependence, unspecified, uncomplicated
CPT/HCPCS: 36415; 71045; 80053; 80307; 82553; 83605; 83735; 85025; 99284-25; A9270; J3490; Q9967